=== PATIENT | male | born 1965 | race Two or more races ===

== ENCOUNTER 2017-04-30 18:13 | Emergency (ER) | payer OTHER ==
[~2017-04-30] VITALS: Ht 177.8 cm; Wt 79.4 kg
[~2017-04-30 18:13] MED LIST: ALBUPOW26; ATEN-60 PO; ESOM40CA39 PO
[2017-04-30 20:06] LABS: Basophils # (auto) 0.1 uL; Basophils % (auto) 1.2 % (0.0-2.0); Eosinophils # (auto) 0.2 uL; Eosinophils % (auto) 2.4 % (0.0-7.0); Hematocrit 45.5 % (41.0-53.0); Hemoglobin 15.9 g/dL (13.5-17.5); Lymphocytes % (auto) 34.4 % (10.0-50.0); Mean Corpuscular Hemoglobin 31.9 pg (28.0-32.0); Mean Corpuscular Volume 91.2 fL (80.0-100.0); Monocytes # (auto) 0.8 uL; Monocytes % (auto) 8.9 % (0.0-12.0); Neutrophils # (auto) 4.6 uL; Neutrophils % (auto) 53.1 % (37.0-80.0); Nucleated Red Blood Cells % 0.1 %; Platelet Count (auto) 214 10^3/uL (140-450); Red Blood Cells 4.99 10^6/uL (4.5-5.90); Red Cell Distribution Width 12.8 % (11.8-14.3); White Blood Cell 8.6 10^3/uL (4.4-10.8)
[2017-04-30 20:23] LABS: Alanine Aminotransferase 43 U/L (16-61); Albumin 4.3 g/dL (3.4-5.0); Anion Gap 8 (5-15); Aspartate Aminotransferase 30 U/L (15-37); BUN/Creatinine Ratio 12.8; Blood Urea Nitrogen 11 mg/dL (7-18); Calcium 9.3 mg/dL (8.5-10.1); Carbon Dioxide 29 mmol/L (21-32); Chloride 102 mmol/L (98-107); GFR African American 120 mL/min; GFR Non-African American 99 mL/min; Glucose 87 mg/dL (74-106); Potassium 4.3 mmol/L (3.5-5.1); Sodium 139 mmol/L (136-145)
[2017-04-30 20:27] LABS: Alkaline Phosphatase 85 U/L (45-117); Bilirubin, Total 0.3 mg/dL (0.2-1.0); Total Protein 7.9 g/dL (6.4-8.2)
[2017-04-30 21:59] VITALS: BP 151/102
[2017-04-30] MEDS ORDERED: NALBUPHINE HCL 10 MG/1ml INJECTION IV ONE (22:15)
[2017-04-30] MEDS ORDERED: SODIUM CHLORIDE 0.9% 1,000 ML IV ONE (22:15)
[2017-04-30 22:23] LABS: Basophils # (auto) 0.1 uL; Basophils % (auto) 1.3 % (0.0-2.0); Eosinophils # (auto) 0.2 uL; Eosinophils % (auto) 2.7 % (0.0-7.0); Hematocrit 42.1 % (41.0-53.0); Hemoglobin 14.7 g/dL (13.5-17.5); Lymphocytes # (auto) 2.5 uL; Lymphocytes % (auto) 35.3 % (10.0-50.0); Mean Corpuscular Hemoglobin 31.9 pg (28.0-32.0); Mean Corpuscular Volume 91.3 fL (80.0-100.0); Monocytes # (auto) 0.7 uL; Monocytes % (auto) 9.2 % (0.0-12.0); Neutrophils # (auto) 3.7 uL; Neutrophils % (auto) 51.5 % (37.0-80.0); Nucleated Red Blood Cells % 0.1 %; Platelet Count (auto) 210 10^3/uL (140-450); Red Blood Cells 4.61 10^6/uL (4.5-5.90); Red Cell Distribution Width 12.7 % (11.8-14.3); White Blood Cell 7.2 10^3/uL (4.4-10.8)
[2017-04-30] MEDS ORDERED: cloNIDine HCL 0.1 MG TAB PO ONE (23:00)
[2017-04-30] MEDS ORDERED: ONDANSETRON HCL 4 MG/2 ML VIAL IV ONE (23:00)
[2017-04-30 23:44] LABS: BUN/Creatinine Ratio 14.6; Bilirubin, Total 0.4 mg/dL (0.2-1.0); Calcium 8.4 mg/dL (8.5-10.1); Potassium 3.6 mmol/L (3.5-5.1); Total Protein 7.4 g/dL (6.4-8.2)
[2017-04-30] MEDS ORDERED: MAGNESIUM CITRATE SOLUTION 300 ML BTL PO ONE (23:45)
== END 2017-05-01 00:05 | disposition home or self-care (01) ==
LOC: ER 18:13
DX: K52.9 Noninfective gastroenteritis and colitis, unspecified (principal); K59.00 Constipation, unspecified; K21.9 Gastro-esophageal reflux disease without esophagitis; Z79.899 Other long term (current) drug therapy
CPT/HCPCS: 36415; 71046; 74176; 80053; 83690; 84484; 85025; 93005; 96361; 96374; 96375; 99285; J2300; J2405; J7030

== ENCOUNTER 2017-07-19 16:53 | Emergency (ER) | payer OTHER ==
[~2017-07-19] VITALS: Ht 175.3 cm; Wt 79.4 kg
[2017-07-19 17:54] LABS: Basophils # (auto) 0.1 uL; Eosinophils # (auto) 0.2 uL; Eosinophils % (auto) 2.1 % (0.0-7.0); Hematocrit 46.7 % (41.0-53.0); Hemoglobin 16.4 g/dL (13.5-17.5); Lymphocytes # (auto) 2.7 uL; Lymphocytes % (auto) 34.1 % (10.0-50.0); Mean Corpuscular Hemoglobin 32.2 pg (28.0-32.0); Mean Corpuscular Hgb Conc. 35.1 g/dL (32.0-36.0); Mean Corpuscular Volume 91.7 fL (80.0-100.0); Monocytes # (auto) 0.7 uL; Monocytes % (auto) 9.5 % (0.0-12.0); Neutrophils # (auto) 4.1 uL; Neutrophils % (auto) 53.3 % (37.0-80.0); Nucleated Red Blood Cells % 0.1 %; Platelet Count (auto) 242 10^3/uL (140-450); Red Blood Cells 5.09 10^6/uL (4.5-5.90); Red Cell Distribution Width 12.9 % (11.8-14.3); White Blood Cell 7.8 10^3/uL (4.4-10.8)
[2017-07-19 18:04] LABS: Albumin 4.1 g/dL (3.4-5.0); BUN/Creatinine Ratio 10.5; Calcium 8.4 mg/dL (8.5-10.1); Potassium 4.2 mmol/L (3.5-5.1)
[2017-07-19 18:08] LABS: Bilirubin, Total 0.3 mg/dL (0.2-1.0); Total Protein 7.9 g/dL (6.4-8.2)
[2017-07-19] MEDS ORDERED: KETOROLAC TROMETH 30 MG/ML 1ML VIAL IV ONE (18:45)
[2017-07-19] MEDS ORDERED: ONDANSETRON HCL 4 MG/2 ML VIAL IV ONE (18:45)
[2017-07-19] MEDS ORDERED: PANTOPRAZOLE 40 MG/10 ML VIAL IV ONE (18:45)
[2017-07-19 19:23] LABS: Amylase 44 U/L (25-115); Lipase 130 U/L (73-393)
[2017-07-19] MEDS ORDERED: IOHEXOL 300 MG/ML 100ML BOTTLE IJ ONE (19:35)
[2017-07-19 21:53] VITALS: BP 119/76
[2017-07-19 22:18] LABS: Urine Bacteria NONE SEEN /hpf (None Seen); Urine Blood Negative /uL (Negative); Urine WBC <1 /hpf (0 - 3)
[2017-07-19 22:24] LABS: Urine Specific Gravity > 1.050 (1.001-1.035)
[2017-07-19] MEDS ORDERED: ACETAMINOPHEN 500 MG TAB PO PRN (22:45)
[2017-07-19] MEDS ORDERED: MORPHINE SULFATE 8mg/ml INJ SDV IV PRN (22:45)
[2017-07-19] MEDS ORDERED: LACTULOSE 20Gm/30ML SOLN PO PRN (22:45)
[2017-07-19] MEDS ORDERED: ONDANSETRON HCL 4 MG/2 ML VIAL IV PRN (22:45)
[2017-07-19] MEDS ORDERED: HYDROcodone-ACET 5/325MG TAB PO PRN (22:45)
[2017-07-20] MEDS ORDERED: PANTOPRAZOLE 40 MG/10 ML VIAL IV SCH (10:00)
== END 2017-07-19 22:57 | disposition home or self-care (01) ==
LOC: ER 16:57
DX: K21.9 Gastro-esophageal reflux disease without esophagitis (principal); K27.9 Peptic ulcer, site unspecified, unspecified as acute or chronic, without hemorrhage or perforation; K29.70 Gastritis, unspecified, without bleeding
CPT/HCPCS: 36415; 74177; 80053; 81001; 82150; 83690; 85025; 93005; 96374; 96375; 99285; C9113; J1885; J2405; Q9967

== ENCOUNTER 2018-07-07 17:01 | Emergency (ER) | payer SELFPAY ==
[~2018-07-07] VITALS: Ht 177.8 cm; Wt 78.9 kg
[~2018-07-07 17:01] MED LIST changes: -ATEN-60 PO
[2018-07-07 18:53] VITALS: BP 148/93
[2018-07-07] MEDS ORDERED: ALBUTEROL SULF 2.5 MG/0.5ML(0.5%) NEB SOLN NEB ONE (19:15)
[2018-07-07] MEDS ORDERED: IPRATROPIUM BROM 0.5 MG/2.5ML INH SOL NEB ONE (19:15)
== END 2018-07-07 20:14 | disposition home or self-care (01) ==
LOC: ER 17:06
DX: R91.8 Other nonspecific abnormal finding of lung field (principal); J98.11 Atelectasis; I10 Essential (primary) hypertension; K21.9 Gastro-esophageal reflux disease without esophagitis
CPT/HCPCS: 71046; 93005; 94640; 99283; J7611; J7644

== ENCOUNTER 2019-10-25 17:49 | Emergency (ER) | payer OTHER ==
[~2019-10-25] VITALS: Ht 172.7 cm; Wt 75.7 kg
[2019-10-25 18:51] LABS: Basophils # (auto) 0.1 10 ^3/uL (0-0.2); Basophils % (auto) 0.7 % (0.0-2.0); Eosinophils # (auto) 0 10 ^3/uL (0-0.8); Eosinophils % (auto) 0.2 % (0.0-7.0); Hemoglobin 16.5 g/dL (13.5-17.5); Lymphocytes # (auto) 1.4 10 ^3/uL (0.4-5.4); Lymphocytes % (auto) 14.2 % (10.0-50.0); Mean Corpuscular Hemoglobin 31.2 pg (28.0-32.0); Mean Corpuscular Hgb Conc. 34.4 g/dL (32.0-36.0); Mean Corpuscular Volume 90.9 fL (80.0-100.0); Monocytes # (auto) 0.6 10 ^3/uL (0-1.3); Monocytes % (auto) 6.1 % (0.0-12.0); Neutrophils # (auto) 7.6 10 ^3/uL (1.6-8.6); Neutrophils % (auto) 78.8 % (37.0-80.0); Nucleated Red Blood Cells % 0.1 %; Platelet Count (auto) 266 10^3/uL (140-450); Red Blood Cells 5.28 10^6/uL (4.5-5.90); Red Cell Distribution Width 12.6 % (11.8-14.3); White Blood Cell 9.6 10^3/uL (4.4-10.8)
[2019-10-25 19:06] LABS: INR 0.99 (0.9-1.15); Partial Thromboplastin Time 24.7 sec (23.0-31.2)
[2019-10-25 19:08] LABS: Alanine Aminotransferase 20 U/L (16-61); Albumin 4.3 g/dL (3.4-5.0); Anion Gap 7 (5-15); Aspartate Aminotransferase 18 U/L (15-37); BUN/Creatinine Ratio 10.4; Blood Urea Nitrogen 10 mg/dL (7-18); Calcium 8.9 mg/dL (8.5-10.1); Carbon Dioxide 26 mmol/L (21-32); Chloride 105 mmol/L (98-107); GFR African American 105 mL/min; GFR Non-African American 86 mL/min; Glucose 116 mg/dL (74-106); Sodium 138 mmol/L (136-145)
[2019-10-25 19:13] LABS: Alkaline Phosphatase 78 U/L (45-117); Bilirubin, Total 0.4 mg/dL (0.2-1.0); Total Protein 8.4 g/dL (6.4-8.2)
[2019-10-26] MEDS ORDERED: HYDROcodone-ACET 10/325MG TAB PO ONE (00:15)
[2019-10-26 04:17] VITALS: BP 118/67
== END 2019-10-26 04:37 | disposition home or self-care (01) ==
LOC: ER 17:49
DX: R07.89 Other chest pain (principal); R00.0 Tachycardia, unspecified; F41.9 Anxiety disorder, unspecified; R51 Headache; B69.9 Cysticercosis, unspecified; K21.9 Gastro-esophageal reflux disease without esophagitis; I10 Essential (primary) hypertension
CPT/HCPCS: 36415; 70450; 71046; 80053; 84484; 85025; 85610; 85730; 93005

== ENCOUNTER 2019-12-04 18:02 | Emergency (ER) | payer OTHER ==
[~2019-12-04] VITALS: Ht 172.7 cm; Wt 74.8 kg
[2019-12-04] MEDS ORDERED: ASPirin 81 mg TAB PO ONE (19:00)
[2019-12-04] MEDS ORDERED: ACETAMINOPHEN 325 MG TAB PO ONE (19:00)
[2019-12-04 19:15] LABS: Urine Bacteria NONE SEEN /hpf (None Seen); Urine Blood Negative /uL (Negative); Urine Specific Gravity 1.014 (1.001-1.035); Urine WBC <1 /hpf (0 - 3)
[2019-12-04 19:29] LABS: Alcohol, Urine < 3.0 mg/dL (0-10); Amphetamine Screen, Urine NEGATIVE (NEGATIVE); Barbiturate Scree,Urine NEGATIVE (NEGATIVE); Benzodiazephine Screen, Urine NEGATIVE (NEGATIVE); Cannabinoid Screen, Urine NEGATIVE (NEGATIVE); Cocaine Screen, Urine NEGATIVE (NEGATIVE); Opiate Scree,Urine NEGATIVE (NEGATIVE); Phencyclidine Screen, Urine NEGATIVE (NEGATIVE)
[2019-12-04 19:53] LABS: Basophils # (auto) 0.1 10 ^3/uL (0-0.2); Eosinophils # (auto) 0.1 10 ^3/uL (0-0.8); Eosinophils % (auto) 1.6 % (0.0-7.0); Hematocrit 42.9 % (41.0-53.0); Hemoglobin 14.4 g/dL (13.5-17.5); Lymphocytes % (auto) 25.3 % (10.0-50.0); Mean Corpuscular Hemoglobin 30.6 pg (28.0-32.0); Mean Corpuscular Hgb Conc. 33.5 g/dL (32.0-36.0); Mean Corpuscular Volume 91.3 fL (80.0-100.0); Monocytes # (auto) 0.6 10 ^3/uL (0-1.3); Monocytes % (auto) 7.5 % (0.0-12.0); Neutrophils # (auto) 5.1 10 ^3/uL (1.6-8.6); Neutrophils % (auto) 64.6 % (37.0-80.0); Platelet Count (auto) 222 10^3/uL (140-450); White Blood Cell 7.9 10^3/uL (4.4-10.8)
[2019-12-04 20:05] LABS: Amylase 50 U/L (25-115); Lipase 105 U/L (73-393)
[2019-12-04 20:07] LABS: Albumin 4.2 g/dL (3.4-5.0); Anion Gap 6 (5-15); Blood Urea Nitrogen 17 mg/dL (7-18); Calcium 8.9 mg/dL (8.5-10.1); Carbon Dioxide 26 mmol/L (21-32); Chloride 105 mmol/L (98-107); Glucose 96 mg/dL (74-106); Potassium 3.9 mmol/L (3.5-5.1); Sodium 137 mmol/L (136-145)
[2019-12-04 20:13] LABS: Alanine Aminotransferase 21 U/L (16-61); Alkaline Phosphatase 79 U/L (45-117); Aspartate Aminotransferase 20 U/L (15-37); BUN/Creatinine Ratio 20.2; Bilirubin, Total 0.3 mg/dL (0.2-1.0); GFR African American 122 mL/min; GFR Non-African American 101 mL/min; Total Protein 7.7 g/dL (6.4-8.2)
[2019-12-04 20:51] VITALS: BP 144/99
== END 2019-12-04 21:07 | disposition home or self-care (01) ==
LOC: ER 18:02
DX: S16.1XXA Strain of muscle, fascia and tendon at neck level, initial encounter (principal); S39.012A Strain of muscle, fascia and tendon of lower back, initial encounter; R51 Headache; K59.00 Constipation, unspecified; R07.89 Other chest pain; I10 Essential (primary) hypertension; V43.52XA Car driver injured in collision with other type car in traffic accident, initial encounter; Y93.89 Activity, other specified; Y99.8 Other external cause status; Y92.410 Unspecified street and highway as the place of occurrence of the external cause
CPT/HCPCS: 36415; 70450; 71045; 72125; 73030; 74176; 80053; 80307; 81001; 82150; 83690; 83880; 84443; 84484; 85025

== ENCOUNTER 2020-01-02 17:34 | Emergency (ER) | payer OTHER ==
[~2020-01-02] VITALS: Ht 170.2 cm; Wt 74.8 kg
[2020-01-02 18:49] VITALS: BP 145/92
== END 2020-01-02 18:56 | disposition home or self-care (01) ==
LOC: ER 17:34
DX: I10 Essential (primary) hypertension (principal); R51.9 Headache, unspecified; Z76.0 Encounter for issue of repeat prescription

== ENCOUNTER 2020-01-06 13:56 | Emergency (ER) | payer OTHER ==
[~2020-01-06] VITALS: Ht 170.2 cm; Wt 73.5 kg
[2020-01-06] MEDS ORDERED: ASPirin 81 mg TAB PO ONE (14:15)
[2020-01-06 15:15] LABS: Basophils # (auto) 0.1 10 ^3/uL (0-0.2); Eosinophils # (auto) 0.1 10 ^3/uL (0-0.8); Eosinophils % (auto) 1.2 % (0.0-7.0); Mean Corpuscular Volume 90.9 fL (80.0-100.0); Monocytes # (auto) 0.6 10 ^3/uL (0-1.3); Nucleated Red Blood Cells % 0.1 %
[2020-01-06 15:19] LABS: Basophils % (auto) 0.9 % (0.0-2.0); Hematocrit 43.4 % (41.0-53.0); Lymphocytes # (auto) 2.1 10 ^3/uL (0.4-5.4); Lymphocytes % (auto) 30.1 % (10.0-50.0); Mean Corpuscular Hemoglobin 31.5 pg (28.0-32.0); Mean Corpuscular Hgb Conc. 34.6 g/dL (32.0-36.0); Monocytes % (auto) 8.4 % (0.0-12.0); Neutrophils # (auto) 4.2 10 ^3/uL (1.6-8.6); Neutrophils % (auto) 59.4 % (37.0-80.0); Platelet Count (auto) 225 10^3/uL (140-450); Red Blood Cells 4.78 10^6/uL (4.5-5.90); Red Cell Distribution Width 12.9 % (11.8-14.3); White Blood Cell 7.1 10^3/uL (4.4-10.8)
[2020-01-06 15:30] LABS: Alanine Aminotransferase 18 U/L (16-61); Albumin 4.3 g/dL (3.4-5.0); Anion Gap 6 (5-15); Aspartate Aminotransferase 22 U/L (15-37); BUN/Creatinine Ratio 10.9; Blood Urea Nitrogen 10 mg/dL (7-18); Calcium 8.8 mg/dL (8.5-10.1); Carbon Dioxide 26 mmol/L (21-32); Chloride 107 mmol/L (98-107); GFR African American 110 mL/min; GFR Non-African American 91 mL/min; Glucose 125 mg/dL (74-106); Potassium 3.8 mmol/L (3.5-5.1); Sodium 139 mmol/L (136-145)
[2020-01-06 15:34] LABS: Alkaline Phosphatase 77 U/L (45-117); Bilirubin, Total 0.4 mg/dL (0.2-1.0); Total Protein 7.6 g/dL (6.4-8.2)
[2020-01-06 18:00] VITALS: BP 146/94
== END 2020-01-06 18:16 | disposition home or self-care (01) ==
LOC: ER 13:56
DX: R07.89 Other chest pain (principal); J40 Bronchitis, not specified as acute or chronic; B69.0 Cysticercosis of central nervous system; F41.9 Anxiety disorder, unspecified; I10 Essential (primary) hypertension; Z79.899 Other long term (current) drug therapy
CPT/HCPCS: 36415; 70450; 71046; 80053; 84443; 84484; 85025

== ENCOUNTER 2020-05-07 10:54 | Emergency (ER) | payer OTHER ==
[~2020-05-07] VITALS: Ht 175.3 cm; Wt 73.5 kg
[2020-05-07 11:39] LABS: Basophils # (auto) 0 10 ^3/uL (0-0.2); Basophils % (auto) 0.6 % (0.0-2.0); Eosinophils # (auto) 0 10 ^3/uL (0-0.8); Eosinophils % (auto) 0.7 % (0.0-7.0); Hematocrit 46.4 % (41.0-53.0); Hemoglobin 16.2 g/dL (13.5-17.5); Lymphocytes # (auto) 1.7 10 ^3/uL (0.4-5.4); Lymphocytes % (auto) 26.6 % (10.0-50.0); Mean Corpuscular Volume 91.6 fL (80.0-100.0); Monocytes # (auto) 0.4 10 ^3/uL (0-1.3); Monocytes % (auto) 5.9 % (0.0-12.0); Neutrophils # (auto) 4.3 10 ^3/uL (1.6-8.6); Neutrophils % (auto) 66.2 % (37.0-80.0); Nucleated Red Blood Cells % 0.1 %; Red Blood Cells 5.06 10^6/uL (4.5-5.90); Red Cell Distribution Width 12.8 % (11.8-14.3); White Blood Cell 6.5 10^3/uL (4.4-10.8)
[2020-05-07 12:05] LABS: Albumin 4.3 g/dL (3.4-5.0); Anion Gap 4 (5-15); Blood Urea Nitrogen 9 mg/dL (7-18); Calcium 9.1 mg/dL (8.5-10.1); Carbon Dioxide 30 mmol/L (21-32); Chloride 103 mmol/L (98-107); Glucose 128 mg/dL (74-106); Potassium 4.3 mmol/L (3.5-5.1); Sodium 137 mmol/L (136-145)
[2020-05-07 12:10] LABS: Alanine Aminotransferase 19 U/L (16-61); Alkaline Phosphatase 76 U/L (45-117); Aspartate Aminotransferase 19 U/L (15-37); Bilirubin, Total 0.3 mg/dL (0.2-1.0); GFR African American 100 mL/min; GFR Non-African American 82 mL/min; Total Protein 8.2 g/dL (6.4-8.2)
[2020-05-07 15:21] VITALS: BP 148/102
== END 2020-05-07 15:32 | disposition home or self-care (01) ==
LOC: ER 10:54
DX: R07.89 Other chest pain (principal); F41.9 Anxiety disorder, unspecified; I10 Essential (primary) hypertension
CPT/HCPCS: 36415; 71046; 80053; 84484; 85025; 93005

== ENCOUNTER 2022-05-15 11:15 | Emergency (ER) | payer MEDICAID, OTHER ==
[~2022-05-15] VITALS: Ht 175.3 cm; Wt 74.0 kg
[2022-05-15] MEDS ORDERED: ASPirin 81 mg TAB PO ONE (11:30)
[2022-05-15 11:44] LABS: Basophils # (auto) 0 10 ^3/uL (0-0.2); Basophils % (auto) 0.7 % (0.0-2.0); Eosinophils # (auto) 0.2 10 ^3/uL (0-0.8); Eosinophils % (auto) 3.5 % (0.0-7.0); Hematocrit 43.9 % (41.0-53.0); Hemoglobin 15.6 g/dL (13.5-17.5); Lymphocytes # (auto) 1.9 10 ^3/uL (0.4-5.4); Lymphocytes % (auto) 28.4 % (10.0-50.0); Mean Corpuscular Hemoglobin 32.1 pg (28.0-32.0); Mean Corpuscular Hgb Conc. 35.5 g/dL (32.0-36.0); Mean Corpuscular Volume 90.6 fL (80.0-100.0); Monocytes # (auto) 0.5 10 ^3/uL (0-1.3); Monocytes % (auto) 7.5 % (0.0-12.0); Neutrophils # (auto) 4.1 10 ^3/uL (1.6-8.6); Neutrophils % (auto) 59.9 % (37.0-80.0); Nucleated Red Blood Cells % 0.1 %; Red Blood Cells 4.84 10^6/uL (4.5-5.90); Red Cell Distribution Width 12.6 % (11.8-14.3); White Blood Cell 6.8 10^3/uL (4.4-10.8)
[2022-05-15 11:58] LABS: Potassium 4.1 mmol/L (3.5-5.1)
[2022-05-15 12:04] LABS: Albumin 4.2 g/dL (3.4-5.0); BUN/Creatinine Ratio 8.6; Bilirubin, Total 0.3 mg/dL (0.2-1.0); Calcium 8.9 mg/dL (8.5-10.1); Magnesium 2.6 mg/dL (1.6-2.6); Total Protein 7.4 g/dL (6.4-8.2)
[2022-05-15 13:46] VITALS: BP 139/84
== END 2022-05-15 13:50 | disposition home or self-care (01) ==
LOC: ER 11:15
DX: R07.89 Other chest pain (principal); E78.5 Hyperlipidemia, unspecified; R51.9 Headache, unspecified; J45.909 Unspecified asthma, uncomplicated; I10 Essential (primary) hypertension
CPT/HCPCS: 36415; 70450; 71046; 80053; 83735; 83880; 84484; 85025; 85379; 93005

== ENCOUNTER 2023-05-14 10:48 | Emergency (ER) | payer MEDICAID ==
[~2023-05-14] VITALS: Ht 175.3 cm; Wt 76.2 kg
[2023-05-14 13:44] VITALS: BP 145/88; PULSE 118; RESP 16; TEMP 97.3; O2SAT 98
[2023-05-14] MEDS ORDERED: ERY05OO OP (13:52)
== END 2023-05-14 14:13 | disposition home or self-care (01) ==
LOC: ER 10:48
DX: H57.8A3 Foreign body sensation, bilateral eyes (principal); I10 Essential (primary) hypertension; E78.5 Hyperlipidemia, unspecified; J45.909 Unspecified asthma, uncomplicated; Z79.899 Other long term (current) drug therapy

== ENCOUNTER 2023-06-19 06:16 | Emergency (ER) | payer MEDICAID ==
[~2023-06-19] VITALS: Ht 175.3 cm; Wt 73.0 kg
[~2023-06-19 06:16] MED LIST changes: +ERY05OO OP
[2023-06-19 07:43] LABS: Basophils # (auto) 0.1 10 ^3/uL (0-0.2); Basophils % (auto) 0.8 % (0.0-2.0); Eosinophils # (auto) 0.1 10 ^3/uL (0-0.8); Eosinophils % (auto) 0.9 % (0.0-7.0); Hematocrit 46.3 % (41.0-53.0); Hemoglobin 15.8 g/dL (13.5-17.5); Lymphocytes # (auto) 1.6 10 ^3/uL (0.4-5.4); Lymphocytes % (auto) 26.6 % (10.0-50.0); Mean Corpuscular Hemoglobin 31.3 pg (28.0-32.0); Mean Corpuscular Hgb Conc. 34.1 g/dL (32.0-36.0); Mean Corpuscular Volume 91.8 fL (80.0-100.0); Monocytes # (auto) 0.5 10 ^3/uL (0-1.3); Monocytes % (auto) 7.8 % (0.0-12.0); Neutrophils # (auto) 3.9 10 ^3/uL (1.6-8.6); Neutrophils % (auto) 63.9 % (37.0-80.0); Nucleated Red Blood Cells % 0.2 %; Red Blood Cells 5.05 10^6/uL (4.5-5.90); Red Cell Distribution Width 13.7 % (11.8-14.3); White Blood Cell 6.1 10^3/uL (4.4-10.8)
[2023-06-19 08:04] LABS: Alanine Aminotransferase 13 U/L (7-40); Albumin 4.8 g/dL (3.2-4.8); Alkaline Phosphatase 89 U/L (46-116); Anion Gap 7 (5-15); Aspartate Aminotransferase 21 U/L (13-40); BUN/Creatinine Ratio 12.8 (10.0-20.0); Bilirubin, Total 0.5 mg/dL (0.2-1.0); Blood Urea Nitrogen 12 mg/dL (9-23); Calcium 9.4 mg/dL (8.5-10.1); Carbon Dioxide 28 mmol/L (20-30); Chloride 105 mmol/L (98-107); Glucose 109 mg/dL (74-106); Sodium 140 mmol/L (136-145); Total Protein 7.2 g/dL (5.7-8.2)
[2023-06-19] MEDS: predniSONE 20 MG TAB PO ONE (08:48)
[2023-06-19] MEDS: ALBUTEROL SULF 2.5 MG/0.5ML(0.5%) NEB SOLN HHN ONE (09:13)
[2023-06-19] MEDS: IPRATROPIUM BROM 0.5 MG/2.5ML INH SOL HHN ONE (09:14)
[2023-06-19 09:54] LABS: COVID19 ANTIGEN SOFIA FIA NEGATIVE (NEGATIVE)
[2023-06-19 09:55] LABS: Rapid Influenza A Negative (Negative); Rapid Influenza B Negative (Negative)
[2023-06-19] MEDS ORDERED: PRED20TA2 PO (10:10)
[2023-06-19] MEDS ORDERED: ALBU108A5 IN (10:10)
[2023-06-19 10:17] VITALS: BP 142/84; PULSE 99; RESP 19; TEMP 97.7; O2SAT 97
== END 2023-06-19 10:18 | disposition home or self-care (01) ==
LOC: ER 06:16
DX: R07.89 Other chest pain (principal); J40 Bronchitis, not specified as acute or chronic; I10 Essential (primary) hypertension; E78.5 Hyperlipidemia, unspecified; Z20.822 Contact with and (suspected) exposure to COVID-19
CPT/HCPCS: 36415; 71045; 80053; 83605; 83880; 84484; 85025; 87040; 87426; 87804; 93005; 94640; 99285; J7050; J7512; J7644

== ENCOUNTER 2023-09-17 16:36 | Emergency (ER) | payer MEDICAID ==
[~2023-09-17] VITALS: Ht 175.3 cm; Wt 78.0 kg
[~2023-09-17 16:36] MED LIST changes: +ALBU108A5 IN; +ASPI-325 PO; +ATOR20TA50 PO; +BACL10TA PO; +GABA-1250 PO; +NIFE1TAB31 PO; +PRED20TA2 PO
[2023-09-17 16:41] VITALS: BP 128/83; RESP 18; O2SAT 97
[2023-09-17 17:11] LABS: Basophils # (auto) 0.1 10 ^3/uL (0-0.2); Basophils % (auto) 0.7 % (0.0-2.0); Eosinophils # (auto) 0.1 10 ^3/uL (0-0.8); Hematocrit 48.4 % (41.0-53.0); Hemoglobin 16.7 g/dL (13.5-17.5); Lymphocytes # (auto) 3.3 10 ^3/uL (0.4-5.4); Lymphocytes % (auto) 32.3 % (10.0-50.0); Mean Corpuscular Hemoglobin 31.3 pg (28.0-32.0); Mean Corpuscular Hgb Conc. 34.6 g/dL (32.0-36.0); Mean Corpuscular Volume 90.5 fL (80.0-100.0); Monocytes # (auto) 0.8 10 ^3/uL (0-1.3); Monocytes % (auto) 7.6 % (0.0-12.0); Neutrophils # (auto) 5.9 10 ^3/uL (1.6-8.6); Neutrophils % (auto) 58.4 % (37.0-80.0); Nucleated Red Blood Cells % 0.1 %; Red Blood Cells 5.35 10^6/uL (4.5-5.90); Red Cell Distribution Width 12.6 % (11.8-14.3); White Blood Cell 10.1 10^3/uL (4.4-10.8)
[2023-09-17 17:20] LABS: Urine Bacteria None Seen /hpf (None Seen)
[2023-09-17 17:51] LABS: Urine Blood Negative /uL (Negative); Urine Budding Yeast OCCASIONAL /hpf (None Seen); Urine Clarity Clear (Clear); Urine Color Light-Yellow (Yellow); Urine Protein, UAD Negative (Negative); Urine Specific Gravity 1.009 (1.001-1.035); Urine Urobilinogen Normal (Negative); Urine WBC <1 /hpf (0 - 3); Urine pH 6.5 (5.0-9.0)
[2023-09-17] MEDS: ASPirin 81 mg TAB PO ONE (18:39)
[2023-09-17 18:42] VITALS: PULSE 114
== END 2023-09-18 00:35 | disposition home or self-care (01) ==
LOC: ER 16:36
DX: R07.89 Other chest pain (principal); I10 Essential (primary) hypertension; E78.5 Hyperlipidemia, unspecified; J45.909 Unspecified asthma, uncomplicated; Z98.890 Other specified postprocedural states; Z79.899 Other long term (current) drug therapy
CPT/HCPCS: 36415; 71046; 81001; 84484; 85025; 93005

== ENCOUNTER 2025-02-14 10:45 | Inpatient (IN) | payer MEDICAID ==
[~2025-02-14] VITALS: Ht 172.7 cm; Wt 81.1 kg
--- NOTE | 2025-02-14 11:04 | ECG ---
[facility] Test Date: 2025-02-14 Test Time: 11:03:06 Pat Name: JIM SANTORO Department: [facility] ED Patient ID: [id number] Room: Gender: M Director Report: gp : 1965 Requested By: SALINAS SHELTON Order Number: [id number] Reading MD: Wilman Corral Measurements Intervals [place] Rate: 109 P: 43 CA: 151 QRS: 67 QRSD: 94 T: -67 QT: 332 QTc: 448 Interpretive Statements Sinus tachycardia Borderline repolarization abnormality Baseline wander in lead(s) V2 Electronically Signed On 02-14-2025 14:14:22 PST by Wilman Corral Please click the below link to view image of tracing.
[2025-02-14 12:01] LABS: Hematocrit 49.8 % (41.0-53.0); Hemoglobin 17.1 g/dL (13.5-17.5); Mean Corpuscular Hemoglobin 30.7 pg (28.0-32.0); Mean Corpuscular Volume 89.4 fL (80.0-100.0); Nucleated Red Blood Cells % 0.0 %
[2025-02-14 12:11] LABS: Chloride 101 mmol/L (98-107); Potassium 3.8 mmol/L (3.5-5.1); Sodium 138 mmol/L (136-145)
[2025-02-14 12:12] LABS: Anion Gap 10 (5-15); Carbon Dioxide 27 mmol/L (20-31)
[2025-02-14 12:13] LABS: Calcium 10.0 mg/dL (8.7-10.4)
[2025-02-14 12:17] LABS: BUN/Creatinine Ratio 8.8 (10.0-20.0); Glucose 103 mg/dL (74-106)
[2025-02-14 12:21] LABS: Blood Urea Nitrogen 8 mg/dL (9-23)
--- NOTE | 2025-02-14 13:15 | ED.PDOC ---
History of Present Illness HPI Comments This is a 59 year-old male who presents to the ED with a chief complaint of left flank pain as of X2 days ago. Patient reports a difficulty urinating, with dark urine color noted. Patient also reports symptoms of head pain and back pain for days, with no associated relieving factors. Patient has no further complaints or modifying factors at this time and otherwise denies dysuria, hematuria, N/V, fever, or chills. Chief Complaint: Flank Pain Time Seen by MD: 12:47 Primary Care Provider: ? Reviewed Notes: Medications, Allergies Allergies: Coded Allergies: NO KNOWN ALLERGIES (Unverified , 08/25/12) Home Meds Active Scripts Nifedipine (Nifedipine Er) 30 Mg Tab, 30 MG PO DAILY for 30 Days, #30 TAB 6 Refills Prov:VIVIENNE GREEN DO 07/01/23 Atorvastatin Calcium (ATORVASTATIN CALCIUM) 20 Mg Tab, 20 MG PO HS for 30 Days, #30 TAB 6 Refills Prov:VIVIENNE GREEN DO 07/01/23 Aspirin (Aspirin Low Dose) 81 Mg Tab, 81 MG PO DAILY for 30 Days, #30 TAB 6 Refills Prov:VIVIENNE GREEN DO 07/01/23 Prednisone (Prednisone) 20 Mg Tab, 60 MG PO DAILY, #15 TAB Prov:ODESSA MEJIA MD 06/19/23 Albuterol Sulfate (Albuterol Sulfate Hfa) 108 Mcg/Act Aer, 108 MCG IN QID PRN, #1 AER Prov:ODESSA MEJIA MD 06/19/23 Erythromycin (Erythromycin) 5 Mg/Gm Oin, 1 APPLIC OP TID for 10 Days, #5 GRAMS 0 Refills Prov:ADELINE SAEED [employer] 05/14/23 Reported Medications Nifedipine (Nifedipine Er) 30 Mg Tab, 1 TAB PO DAILY 06/29/23 Baclofen (Baclofen) 10 Mg Tab, 1 TAB PO DAILY 06/29/23 Gabapentin (Gabapentin) 300 Mg Cap, 1 CAP PO TID 06/29/23 Albuterol (Albuterol) Pow 08/25/12 Esomeprazole Magnesium Trihydr (Nexium) 40 Mg Cap, PO DAILY 08/25/12 Information Source: Patient Mode of Arrival: Ambulatory Severity: Moderate Timing: Days Duration: Since onset Past Medical History PAST MEDICAL HISTORY: Asthma, High Lipids, HTN Surgical History: Denies all surgeries Family History Family History: Family hx of Cancer, Family hx of heart erinn Social History Smoker: Non-Smoker Alcohol: Denies ETOH Use Drugs: Denies Drug Use Lives In: Home Constitutional: denies: chills, diaphoresis, fatigue, fever, malaise, sweats, weakness, others EENTM: denies: blurred vision, double vision, ear bleeding, ear discharge, ear drainage, ear pain, ear ringing, eye pain, eye redness, hearing loss, mouth pain, mouth swelling, nasal discharge, nose bleeding, nose congestion, nose pain, photophobia, tearing, throat pain, throat swelling, voice changes, others Respiratory: denies: cough, hemoptysis, orthopnea, SOB at rest, shortness of breath, SOB with excertion, stridor, wheezing, others Cardiovascular: denies: chest pain, dizzy spells, diaphoresis, Dyspnea on exertion, edema, irregular heart beat, left arm pain, lightheadedness, palpitations, PND, syncope, others Gastrointestinal: denies: abdomen distended, abdominal pain, blood streaked bowels, constipated, diarrhea, dysphagia, difficulty swallowing, hematemesis, melena, nausea, poor appetite, poor fluid intake, rectal bleeding, rectal pain, vomiting, others Genitourinary: reports: flank pain; denies: burning, dysuria, frequency, hematuria, incontinence, penile discharge, penile sore, pain, testicle pain, testicle swelling, urgency, others Neurological: reports: headache; denies: dizziness, fainting, left sided numbness, left sided weakness, numbness, paresthesia, pre-existing deficit, right sided numbness, right sided weakness, seizure, speech problems, tingling, tremors, weakness, others Musculoskeletal: reports: back pain; denies: gout, joint pain, joint swelling, muscle pain, muscle stiffness, neck pain, others Integumetry: denies: bruises, change in color, change in hair/nails, dryness, laceration, lesions, lumps, rash, wounds, others Allergic/Immunocompromised: denies: Difficulty Healing, Frequent Infections, Hives, Itching, others Hematologic/Lymphatic: denies: anemia, blood clots, easy bleeding, easy bruising, swollen glands, others Endocrine: denies: excessive hunger, excessive sweating, excessive thirst, excessive urination, flushing, intolerance to cold, intolerance to heat, unexplained weight gain, unexplained weight loss, others Psychiatric: denies: anxiety, bipolar disorder, depression, hopeless, panic disorder, schizophrenia, sleepless, suicidal, others All Other Systems: Reviewed and Negative Physical Exam General Appearance: Mild Distress, Normal HEENT: Normal ENT Inspection, TMs Normal Neck: Non-Tender, Normal Respiratory: Chest Non-Tender, Lungs Clear, No Respiratory Distress, Normal Breath Sounds Cardiovascular: No Edema, No JVD, No Murmur, No Gallop, Regular Rate/Rhythm Breast Exam: Deferred Gastrointestinal: Non Tender, Normal Bowel Sounds, Soft Genitalia: Deferred Pelvic: Deferred Rectal: Deferred Extremities: Normal capillary refill, Normal inspection, Normal range of motion, Non-tender, No pedal edema Musculoskeletal : Apperance: Normal Neurologic: Alert, No Motor Deficits, Normal Affect, Normal Mood, No Sensory Deficits Cerebellar Function: NOT DONE Reflexes: NOT DONE Skin: Dry, Normal Color, Warm Lymphatic: No Adenopathy Was a procedure done? Was a procedure done?: No EKG EKG : Pulse Rate (adult): 108 [place]: Normal Cardiac Rhythm: ST Comments Sinus tachycardia Borderline repolarization abnormality Differential Dx Considerations may include: UTI, X-Ray, Labs, Meds, VS Vital Signs Date Time Temp Pulse Resp B/P (MAP) Pulse Ox O2 Delivery O2 Flow Rate FiO2 02/14/25 17:35 98.1 116 18 132/101 (111) 96 98.1 02/14/25 15:23 116 19 97 Room Air 02/14/25 15:23 98.1 116 19 140/106 (117) 97 98.1 02/14/25 13:43 97.8 108 16 152/102 (119) 95 97.8 02/14/25 13:15 108 02/14/25 10:52 97.6 102 18 141/99 97 97.6 Lab Test 02/14/25 13:00 02/14/25 11:41 Range/Units Urine Color Light-yellow Yellow Urine Clarity Clear Clear Urine pH 6.5 5.0-9.0 Urine Specific [place] 1.017 1.001-1.035 Urine Protein Trace H Negative Urine Ketones 1+ H Negative Urine Blood Negative Negative /uL Urine Nitrite Negative Negative Urine Bilirubin Negative Negative Urine Urobilinogen Normal Negative mg/dL Urine Leukocyte Esterase Negative Negative /uL Urine RBC 1 0 - 3 /hpf Urine Microscopic WBC 1 0-3 /HPF Urine Squamous Epithelial Cells Few <5 /hpf Urine Bacteria None seen None Seen /hpf Urine Mucus Few None Seen Urine Glucose Normal Normal mg/dL White Blood Count 8.0 4.4-10.8 10^3/uL Red Blood Count 5.57 4.5-5.90 10^6/uL Hemoglobin 17.1 13.5-17.5 g/dL Hematocrit 49.8 41.0-53.0 % Mean Corpuscular Volume 89.4 80.0-100.0 fL Mean Corpuscular Hemoglobin 30.7 28.0-32.0 pg Mean Corpuscular Hemoglobin Concent 34.3 32.0-36.0 g/dL Red Cell Distribution Width 13.1 11.8-14.3 % Platelet Count 266 140-450 10^3/uL Mean Platelet Volume 9.1 6.9-10.8 fL Neutrophils (%) (Auto) 73.8 37.0-80.0 % Lymphocytes (%) (Auto) 20.4 10.0-50.0 % Monocytes (%) (Auto) 4.8 0.0-12.0 % Eosinophils (%) (Auto) 0.4 0.0-7.0 % Basophils (%) (Auto) 0.6 0.0-2.0 % Neutrophils # (Auto) 5.9 1.6-8.6 10 ^3/uL Lymphocytes # (Auto) 1.6 0.4-5.4 10 ^3/uL Monocytes # (Auto) 0.4 0-1.3 10 ^3/uL Eosinophils # (Auto) 0 0-0.8 10 ^3/uL Basophils # (Auto) 0.1 0-0.2 10 ^3/uL Nucleated Red Blood Cells 0.0 % Sodium Level 138 136-145 mmol/L Potassium Level 3.8 3.5-5.1 mmol/L Chloride Level 101 98-107 mmol/L Carbon Dioxide Level 27 20-31 mmol/L Anion Gap 10 5-15 Blood Urea Nitrogen 8 L 9-23 mg/dL Creatinine 0.91 0.700-1.30 mg/dL Glomerular Filtration Rate Calc 96 >90 mL/min BUN/Creatinine Ratio 8.8 L 10.0-20.0 Serum Glucose 103 74-106 mg/dL Lactic Acid Level 1.9 0.4-2.0 mmol/L Calcium Level 10.0 8.7-10.4 mg/dL Time of 1ST Reevaluation: 13:48 Reevaluation 1ST: Unchanged Patient Education/Counseling: Diagnosis, Treatment Family Education/Counseling: No Family Present SEPSIS Sepsis Screen Date sepsis recognized/suspect: Feb 14, 2025 Time Sepsis recognized/suspect: 1052 Recent Procedure: No On Antibiotic Therapy: No Respiratory Rate >20: No Heart Rate >90: Yes Temp<36 C (96.8 F) or >38.3 C: No SBP <90 or MAP <65 mmHG: No New Acute Mental Status Change: No Is the patient on CPAP, BIPAP,: No Physician Orders Electrocardigram (02/14/25 10:57) Blood Culture (02/14/25 11:15) Ct Ab Pel With Iv Con Only (02/14/25 15:10) Vital Signs Date Time Temp Pulse Resp B/P (MAP) Pulse Ox O2 Delivery O2 Flow Rate FiO2 02/14/25 17:35 98.1 116 18 132/101 (111) 96 98.1 02/14/25 15:23 116 19 97 Room Air 02/14/25 15:23 98.1 116 19 140/106 (117) 97 98.1 02/14/25 13:43 97.8 108 16 152/102 (119) 95 97.8 02/14/25 13:15 108 02/14/25 10:52 97.6 102 18 141/99 97 97.6 Laboratory Tests Test 02/14/25 11:41 Lactic Acid Level 1.9 mmol/L (0.4-2.0) White Blood Count 8.0 10^3/uL (4.4-10.8) Departure 1 Departure Time of Disposition: 19:35 (Patient presented with abdominal pain that was concerning for possible appendicits, gastritis, cholecystitis, colitis, gastroenteritis, sbo, or orther possible surgical emergency. Data: 1. I ordered and reviewed the result of at least 3 labs including a CBC, BMP, and Urinalysis. 2. I independently interpreted the following tests: CT Abdomen and Pelvis is concerning for benign abdomen .Risk:This patient has a high risk of morbidity due to further diagnostic testing or treatment and may suffer from an acute abdominal process disorder. Workup reveals intractable abdominal pain and patient should be admitted for further workup. and possible expert consultation. ) Impression: Primary Impression: Intractable abdominal pain Disposition: ADMITTED INPATIENT Admit to: Med Surg Condition: Guarded Critical Care Note Critical Care Time?: Yes Critical care comment: Intractable abdominal pain Authorized and Performed by: Salinas Lynch MD Total critical care time: Approximately 36 minutes Due to a high probability of clinically significant, life threatening deterioration, the patient required my highest level of preparedness to intervene emergently and I personally spent this critical care time directly and personally managing the patient. This critical care time included obtaining a history; examining the patient; pulse oximetry; ordering and review of studies; arranging urgent treatment with development of a management plan; evaluation of patient's response to treatment; frequent reassessment; and, discussions with other providers. This critical care time was performed to assess and manage the high probability of imminent, life-threatening deterioration that could result in multi-organ failure. It was exclusive of separately billable procedures and treating other patients and teaching time. Please see my other sections and the rest of the note for further information on patient assessment and treatment. Stability Stability form required: No Heart Score Heart Score: Heart Score Response (Comments) Value History Moderate Suspicious 1 EKG Normal 0 Age 45-64 1 Risk Factors N/A 0 Troponin N/A 0 Total 2 I personally scribed for SALINAS LYNCH MD ([email or web address]) on 02/14/25 at 13:15. Electronically submitted by Catherine Jamison ([email or web address]). I personally scribed for SALINAS LYNCH MD ([email or web address]) on 02/14/25 at 13:19. Electronically submitted by Catherine Jamison ([email or web address]). SALINAS LYNCH MD Feb 14, 2025 13:15
[2025-02-14 13:39] LABS: Urine Protein, UAD TRACE (Negative)
--- NOTE | 2025-02-14 16:29 | DVH ---
EXAM: CT CT AB PEL WITH IV CON ONLY HISTORY: abdominal pain TECHNIQUE: Volumetric multidetector CT images of the abdomen and pelvis were obtained after the administration of intravenous contrast. All CT scans at this facility use dose modulation, iterative reconstruction, and/or weight based dosing when appropriate to reduce radiation dose to as low as reasonably achievable. COMPARISON: CT ABD PELVIS WO CONTRAST on DOS: 12/04/19 FINDINGS: [LOWER CHEST]: Calcific granuloma in the left lung base. [LIVER]: Normal hepatic size without suspicious focal lesion. [GALLBLADDER AND BILIARY TREE]: No cholelithiasis. [SPLEEN]: Unremarkable. [PANCREAS]: Unremarkable. [ADRENAL GLANDS]: Unremarkable [KIDNEYS]: No hydronephrosis. No nephroureterolithiasis. Benign-appearing cysts of the left posterior superior kidney [BLADDER]: Unremarkable for the degree distention. [REPRODUCTIVE ORGANS]: Mild prostatomegaly [BOWEL/MESENTERY]: Stomach is normal. No CT evidence of bowel obstruction. mild stool burden. The appendix is poorly visualized. [ASCITES]: Absent [LYMPHADENOPATHY]: No pathologically enlarged lymph nodes by CT size criteria [VASCULATURE]: No aneurysmal dilatation. [ABDOMINAL WALL]: Unremarkable. [MUSCULOSKELETAL]: No acute fracture or aggressive focal osseous lesion. Multifocal degenerative change of the visualized spine. IMPRESSION: 1. No CT evidence of an acute abdominal/pelvic process. 2. Mild prostatomegaly. Mild stool burden.
[2025-02-14] MEDS: MORPHINE SULFATE 4 MG/ML SYR/VIAL IV ONE (20:35)
[2025-02-14] MEDS: ONDANSETRON HCL 4 MG/2 ML VIAL IV ONE (20:35)
[2025-02-14] MEDS: SODIUM CHLORIDE 0.9% 1,000 ML IV ONE (20:36)
--- NOTE | 2025-02-14 21:38 | DVHHP2 ---
History of Present Illness Reason for Visit: Intractable abdominal pain History of Present Illness The patient is a 59-year-old male with past medical history of asthma, hypertension, and hyperlipidemia who presented to [facility] ED with complaint of left flank pain for the past 2 days. Patient reports he has been experiencing abdominal pain associated with difficulty urinating, urinate dark urine color, back pain, getting worse today that prompted this visit. Patient was seen and evaluated in the ED, laboratory data shows WBC 8.0, platelets 266, sodium 138, potassium 3.8, BUN 8, creatinine 0.91, GFR 96, glucose 103, calcium 10.0, lactic acid 1.9, blood pressure 132/101, heart rate 1 one six, temperature 98.1 F, O2 saturation 97% on room air. Abdomen/pelvis CT revealing mild prostatomegaly, mild stool burden, no acute abdominopelvic process. Please see medication orders section in the computer. On my assessment, patient denied chest pain, no headache, dizziness, diaphoresis, shortness of breaths, no abdominal pain at this moment, diarrhea, nausea, vomiting, fever, no chills. Patient was admitted for further evaluation and medical management. Past Medical History Asthma, High Lipids, HTN Past Surgical History Denies all surgeries Family History Reviewed, noncontributory to the management of this case. Past Social History The patient lives at home, denies smoking, alcohol or illicit drugs abuse. Review of Systems Constitutional: Yes: Weakness; No: Fever, Chills, Sweats, Malaise, Other Eyes: No: Pain, Vision change, Conjunctivae inflammation, Eyelid inflammation, Other, Redness ENT: No: Ear pain, Ear discharge, Nose pain, Nose discharge, Nose congestion, Mouth pain, Mouth swelling, Throat pain, Throat swelling, Other Respiratory: No: Cough, Dry, Shortness of breath, SOB with excertion, Wheezing, Hemoptysis, Pleuritic Pain, Sputum, Wheezing, Other Cardiovascular: No: Chest Pain, Palpitations, Orthopnea, Paroxysmal Noc. Dyspnea, Edema, Lt Headedness, Other Gastrointestinal: Abdominal Pain; No: Nausea, Vomiting, Diarrhea, Constipation, Melena, Hematochezia, Other Genitourinary: No Dysuria, No Frequency, No Incontinence, No Hematuria, No Retention; Other (Flank pain) Musculoskeletal: back pain; No: other, neck pain, shoulder pain, arm pain, hand pain, leg pain, foot pain Skin: No: Rash, Lesions, Jaundice, Bruising, Other Neurological: No: Weakness, Numbness, Incoordination, Change in speech, Confusion, Seizures, Other Allergies: Coded Allergies: NO KNOWN ALLERGIES (Unverified , 08/25/12) Medications Current Medications Medications Dose Ordered Sig/Tato Route Start Time Stop Time Status Last Admin Dose Admin Aspirin 81 mg DAILY PO 02/15/25 10:00 UNV Atorvastatin Calcium 20 mg HS PO 02/14/25 22:00 UNV Metoprolol Tartrate 25 mg BID PO 02/14/25 22:00 UNV Sodium Chloride 1,000 ml @ 60 mls/hr [id number] IV 02/14/25 21:45 UNV Exam Vital Signs Vital Signs Date Time Temp Pulse Resp B/P (MAP) Pulse Ox O2 Delivery O2 Flow Rate FiO2 02/14/25 20:42 Room Air* 0 21 02/14/25 17:35 98.1 116 18 132/101 (111) 96 98.1 General Appearance: Alert, Oriented X3, Cooperative, No acute distress HEENT: Atraumatic, PERRLA, EOMI, Mucous membr. moist/pink Respiratory: Normal air movement Cardiovascular: Regular rate, Normal S1, Normal S2, No murmurs Abdominal: Normal bowel sounds, Soft, No tenderness, No hepatospenomegaly, No masses Extremities: No clubbing, No cyanosis, No edema, Normal pulses, No tenderness/swelling Skin: No rashes, No significant lesion Neuro: Normal speech, Normal tone, Sensation intact, Cranial nerves 3-12 NL, Reflexes 2+, Other (Generalized weakness) Psych/Mental Status: Mental status NL, Mood NL Labs/Xrays Labs Test 02/14/25 13:00 02/14/25 11:41 Range/Units Urine Color Light-yellow Yellow Urine Clarity Clear Clear Urine pH 6.5 5.0-9.0 Urine Specific [place] 1.017 1.001-1.035 Urine Protein Trace H Negative Urine Ketones 1+ H Negative Urine Blood Negative Negative /uL Urine Nitrite Negative Negative Urine Bilirubin Negative Negative Urine Urobilinogen Normal Negative mg/dL Urine Leukocyte Esterase Negative Negative /uL Urine RBC 1 0 - 3 /hpf Urine Microscopic WBC 1 0-3 /HPF Urine Squamous Epithelial Cells Few <5 /hpf Urine Bacteria None seen None Seen /hpf Urine Mucus Few None Seen Urine Glucose Normal Normal mg/dL White Blood Count 8.0 4.4-10.8 10^3/uL Red Blood Count 5.57 4.5-5.90 10^6/uL Hemoglobin 17.1 13.5-17.5 g/dL Hematocrit 49.8 41.0-53.0 % Mean Corpuscular Volume 89.4 80.0-100.0 fL Mean Corpuscular Hemoglobin 30.7 28.0-32.0 pg Mean Corpuscular Hemoglobin Concent 34.3 32.0-36.0 g/dL Red Cell Distribution Width 13.1 11.8-14.3 % Platelet Count 266 140-450 10^3/uL Mean Platelet Volume 9.1 6.9-10.8 fL Neutrophils (%) (Auto) 73.8 37.0-80.0 % Lymphocytes (%) (Auto) 20.4 10.0-50.0 % Monocytes (%) (Auto) 4.8 0.0-12.0 % Eosinophils (%) (Auto) 0.4 0.0-7.0 % Basophils (%) (Auto) 0.6 0.0-2.0 % Neutrophils # (Auto) 5.9 1.6-8.6 10 ^3/uL Lymphocytes # (Auto) 1.6 0.4-5.4 10 ^3/uL Monocytes # (Auto) 0.4 0-1.3 10 ^3/uL Eosinophils # (Auto) 0 0-0.8 10 ^3/uL Basophils # (Auto) 0.1 0-0.2 10 ^3/uL Nucleated Red Blood Cells 0.0 % Sodium Level 138 136-145 mmol/L Potassium Level 3.8 3.5-5.1 mmol/L Chloride Level 101 98-107 mmol/L Carbon Dioxide Level 27 20-31 mmol/L Anion Gap 10 5-15 Blood Urea Nitrogen 8 L 9-23 mg/dL Creatinine 0.91 0.700-1.30 mg/dL Glomerular Filtration Rate Calc 96 >90 mL/min BUN/Creatinine Ratio 8.8 L 10.0-20.0 Serum Glucose 103 74-106 mg/dL Lactic Acid Level 1.9 0.4-2.0 mmol/L Calcium Level 10.0 8.7-10.4 mg/dL PATIENT: JIM SANTORO PACCT: [id number] UNIT: [id number] : 1965 LOC: ER ROOM / BED: / AGE / SEX: 59 / M ADM STATUS: REG ER SERVICE 1510 ORDERING PHYSICIAN: SALINAS SHELTON MD PROCEDURE(s): ABPLIV - CT AB PEL WITH IV CON ONLY REASON: abdominal pain ORDER NUMBER(s): [id number], ACCESSION NUMBER(s): [id number] EXAM: CT CT AB PEL WITH IV CON ONLY HISTORY: abdominal pain TECHNIQUE: Volumetric multidetector CT images of the abdomen and pelvis were obtained after the administration of intravenous contrast. All CT scans at this facility use dose modulation, iterative reconstruction, and/or weight based dosing when appropriate to reduce radiation dose to as low as reasonably achievable. COMPARISON: CT ABD PELVIS WO CONTRAST on DOS: 12/04/19 FINDINGS: [LOWER CHEST]: Calcific granuloma in the left lung base. [LIVER]: Normal hepatic size without suspicious focal lesion. [GALLBLADDER AND BILIARY TREE]: No cholelithiasis. [SPLEEN]: Unremarkable. [PANCREAS]: Unremarkable. [ADRENAL GLANDS]: Unremarkable [KIDNEYS]: No hydronephrosis. No nephroureterolithiasis. Benign-appearing cysts of the left posterior superior kidney [BLADDER]: Unremarkable for the degree distention. [REPRODUCTIVE ORGANS]: Mild prostatomegaly [BOWEL/MESENTERY]: Stomach is normal. No CT evidence of bowel obstruction. mild stool burden. The appendix is poorly visualized. [ASCITES]: Absent [LYMPHADENOPATHY]: No pathologically enlarged lymph nodes by CT size criteria [VASCULATURE]: No aneurysmal dilatation. [ABDOMINAL WALL]: Unremarkable. [MUSCULOSKELETAL]: No acute fracture or aggressive focal osseous lesion. Multifocal degenerative change of the visualized spine. IMPRESSION: 1. No CT evidence of an acute abdominal/pelvic process. 2. Mild prostatomegaly. Mild stool burden. SEPSIS Sepsis Screen Date sepsis recognized/suspect: Feb 14, 2025 Time Sepsis recognized/suspect: 1052 Recent Procedure: No On Antibiotic Therapy: No Respiratory Rate >20: No Heart Rate >90: Yes Temp<36 C (96.8 F) or >38.3 C: No SBP <90 or MAP <65 mmHG: No New Acute Mental Status Change: No Is the patient on CPAP, BIPAP,: No Physician Orders Ct Ab Pel With Iv Con Only (02/14/25 15:10) Aspirin Chewable Tablet (02/15/25 10:00) Atorvastatin (Lipitor) (02/14/25 22:00) Metoprolol Tartrate Tablet (Lopressor Ta (02/14/25 22:00) Admit (02/14/25:) Allergies (02/14/25:) Code Status (02/14/25:) 0.9% Ns 1000 Ml (02/14/25 21:45) Oxygen Per Hour (02/14/25:) Hydrocodone-Acet 5/325mg Tab ([place] 32 (02/14/25 21:45) Ondansetron Hcl (Zofran) (02/14/25 21:45) Docusate Sodium Capsule (Colace Capsule) (02/14/25 21:45) Complete Blood Count (02/15/25 04:00) Comprehensive Metabolic Panel (02/15/25 04:00) Cardiac Diet-2gna,Lofat,Lochol (02/15/25 Breakfast) Condition: Serious (02/14/25:) Acetaminophen Tablet (Tylenol Tablet) (02/14/25 21:45) Bedrest With Bathroom Privileg (02/14/25:) Morphine Sulfate Injection (02/14/25 21:45) Sequential Compression Device (02/14/25 ) Nitroglycerin Sublingual (Ntrostat Subli (02/14/25:45) Morphine Sulfate Injection (02/14/25 21:45) Notify Md Of Changes From Base (02/14/25:) Fire Extinguisher Charger For 24 Hours (02/14/25:) Emergency Dysrhythmia Protocol (02/14/25:) Oxygen By Nasal Cannula (02/14/25:) Vital Signs Date Time Temp Pulse Resp B/P (MAP) Pulse Ox O2 Delivery O2 Flow Rate FiO2 02/14/25 20:42 Room Air* 0 21 02/14/25 17:35 98.1 116 18 132/101 (111) 96 98.1 02/14/25 15:23 116 19 97 Room Air 02/14/25 15:23 98.1 116 19 140/106 (117) 97 98.1 02/14/25 13:43 97.8 108 16 152/102 (119) 95 97.8 Laboratory Tests Test 02/14/25 11:41 Lactic Acid Level 1.9 mmol/L (0.4-2.0) White Blood Count 8.0 10^3/uL (4.4-10.8) Medications Medications Dose Ordered Sig/Tato Route Start Time Stop Time Status Last Admin Dose Admin Sodium Chloride 1,000 ml @ 1,000 mls/hr Q1H ONCE IV 02/14/25 19:45 02/14/25 20:44 DC 02/14/25 20:36 1,000 MLS/HR Assessment/Plan Assessment/Plan Intractable abdominal pain Tachycardia Generalized weakness Plan 1. Admit to med surge unit 2. Breathing treatment 3. Pain control management 4. Management of fluids and electrolytes 5. Consultation for hospitalist 6. Diagnostic tests abdomen/pelvis CT 7. DVT prophylaxis-on aspirin 8. Repeat labs CBC, CMP in a.m. 9. Continue with current medical management 10. Treatment plan discussed with patient and RN. Patient verbalized leroy woodward. Plan discussed with: Patient, Other (RN) My Orders Orders - MITRA GOOD DNP Procedure Category Date Status Time Aspirin Chewable PHA 02/15/25 Transmitted Tablet 10:00 Atorvastatin (Lipitor) PHA 02/14/25 Transmitted 22:00 Metoprolol Tartrate PHA 02/14/25 Transmitted Tablet (Lopressor Ta 22:00 Admit ADMIT 02/14/25 Transmitted 21:33 Allergies XIMENA 02/14/25 Transmitted 21:33 Code Status CODE 02/14/25 Transmitted 21:33 0.9% Ns 1000 Ml PHA 02/14/25 Transmitted 21:45 Oxygen Per Hour RT 02/14/25 Transmitted 21:33 Hydrocodone-Acet PHA 02/14/25 Transmitted 5/325mg Tab ([place] 21:45 Ondansetron Hcl PHA 02/14/25 Transmitted (Zofran) 21:45 Docusate Sodium PHA 02/14/25 Transmitted Capsule (Colace 21:45 Complete Blood Count LAB 02/15/25 Verified 04:00 Comprehensive LAB 02/15/25 Verified Metabolic Panel 04:00 Cardiac DIET 02/15/25 Transmitted Diet-2gna,Lofat,Lochol Breakfast Condition: Serious [facility] 02/14/25 Transmitted 21:33 Acetaminophen Tablet [facility] 02/14/25 Transmitted (Tylenol Tablet) 21:45 Bedrest With Bathroom [facility] 02/14/25 Transmitted Privileg 21:33 Morphine Sulfate [facility] 02/14/25 Transmitted Injection 21:45 Sequential [facility] 02/14/25 Transmitted Compression Device Nitroglycerin [facility] 02/14/25 Transmitted Sublingual (Ntrostat 21:45 Morphine Sulfate [facility] 02/14/25 Transmitted Injection 21:45 Notify Of Changes [facility] 02/14/25 Transmitted From Base 21:33 Fire Extinguisher Charger For [facility] 02/14/25 Transmitted 24 Hours 21:33 Emergency Dysrhythmia [facility] 02/14/25 Transmitted Protocol 21:33 Oxygen By Nasal 02/14/25 Transmitted Cannula 21:33 Problem List: (1) Intractable abdominal pain (2) Tachycardia (3) Generalized weakness Date of Service: Feb 14, 2025 Billing Provider: MITRA GOOD DNP Common Visit Codes: [id number] INP/OBS CARE (HIGH) MITRA GOOD DNP Feb 14, 2025 21:38
[2025-02-14] MEDS: SODIUM CHLORIDE 0.9% 1,000 ML IV SCH (21:45)
[2025-02-14] MEDS ORDERED: NITROGLYCERIN 0.4 MG SL TAB SL PRN (21:45)
[2025-02-14] MEDS ORDERED: HYDROcodone-ACET 5/325MG TAB PO PRN (21:45)
[2025-02-14] MEDS ORDERED: MORPHINE SULFATE INJ 2 MG/ml SYRG IV PRN ×2 (21:45)
[2025-02-14] MEDS ORDERED: ONDANSETRON HCL 4 MG/2 ML VIAL IV PRN (21:45)
[2025-02-14] MEDS ORDERED: ALBUTEROL SULF 2.5 MG/0.5ML(0.5%) NEB SOLN NEB PRN (21:45)
[2025-02-14] MEDS ORDERED: ACETAMINOPHEN 325 MG TAB PO PRN (21:45)
[2025-02-14] MEDS ORDERED: DOCUSATE SOD 100 MG CAP PO PRN (21:45)
[2025-02-14] MEDS: IBUPROFEN 800 MG TAB PO ONE (23:05)
[2025-02-14] MEDS: METOPROLOL TARTRATE 25 MG TAB PO SCH (23:06)
[2025-02-14] MEDS: ATORVASTATIN 20 MG TAB PO SCH (23:06)
[2025-02-14 23:15] VITALS: BP 135/95; PULSE 109; RESP 20; TEMP 98.7; O2SAT 96
[2025-02-15] VITALS (13 sets, daily range): BP systolic 114–142; BP diastolic 56–92; PULSE 55–96; RESP 14–18; TEMP 97.6–98.6; O2SAT 94–100
[2025-02-15] MEDS ORDERED: DEXL60CA4 PO (03:37)
[2025-02-15] MEDS ORDERED: ALBUTEROL SULF 2.5 MG/0.5ML(0.5%) NEB SOLN ONE (06:52)
[2025-02-15 08:11] LABS: Hematocrit 44.6 % (41.0-53.0); Hemoglobin 15.3 g/dL (13.5-17.5); Mean Corpuscular Hemoglobin 30.7 pg (28.0-32.0); Mean Corpuscular Volume 89.1 fL (80.0-100.0); Nucleated Red Blood Cells % 0.0 %
[2025-02-15 08:32] LABS: Alanine Aminotransferase 18 U/L (7-40); Albumin 4.7 g/dL (3.2-4.8); Alkaline Phosphatase 101 U/L (46-116); Anion Gap 9 (5-15); BUN/Creatinine Ratio 18.6 (10.0-20.0); Blood Urea Nitrogen 16 mg/dL (9-23); Calcium 9.7 mg/dL (8.7-10.4); Carbon Dioxide 28 mmol/L (20-31); Chloride 103 mmol/L (98-107); Glucose 121 mg/dL (74-106); Potassium 4.7 mmol/L (3.5-5.1); Sodium 140 mmol/L (136-145); Total Protein 7.6 g/dL (5.7-8.2)
[2025-02-15 08:33] LABS: Bilirubin, Total 0.7 mg/dL (0.2-1.0)
[2025-02-15] MEDS ORDERED: METOPROLOL TARTRATE 50 MG TAB ONE (08:40)
--- NOTE | 2025-02-15 13:17 | DVHPN2 ---
Reviewed: Care Plan, H&P, Labs, Medications, Previous Orders, Radiology Changes from previous H/P or p: No Changes Eyes: No Pain, No Vision change, No Conjunctivae inflammation, No Eyelid inflammation, No Other, No Redness ENT: No Ear pain, No Ear discharge, No Nose pain, No Nose discharge, No Nose congestion, No Mouth pain, No Mouth swelling, No Throat pain, No Throat swelling, No Other Cardiovascular: No Chest Pain, No Palpitations, No Orthopnea, No Paroxysmal Noc. Dyspnea, No Edema, No Lt Headedness, No Other Respiratory: No Cough, No Dry, No Shortness of breath, No SOB with excertion, No Wheezing, No Hemoptysis, No Pleuritic Pain, No Sputum, No Other Gastrointestinal: No Nausea, No Vomiting; Abdominal Pain; No Diarrhea, No Constipation, No Melena, No Hematochezia, No Other Genitourinary: No Dysuria, No Frequency, No Incontinence, No Hematuria, No Retention; Other (Flank pain) Musculoskeletal: No other, No neck pain, No shoulder pain, No arm pain; back pain; No hand pain, No leg pain, No foot pain Skin: No Rash, No Lesions, No Jaundice, No Bruising, No Other Objective Vitals Vital Signs Date Time Temp Pulse Resp B/P (MAP) Pulse Ox O2 Delivery O2 Flow Rate FiO2 02/15/25 12:00 97.7 71 16 125/83 (97) 97 97.7 02/15/25 07:30 Room Air* 0 21 Medications Current Medications Medications Dose Ordered Sig/Tato Route Start Time Stop Time Status Last Admin Dose Admin Aspirin 81 mg DAILY PO 02/15/25 10:00 02/15/25 09:46 81 MG Atorvastatin Calcium 20 mg HS PO 02/14/25 22:00 02/14/25 23:06 20 MG Metoprolol Tartrate 25 mg BID PO 02/14/25 22:00 02/15/25 09:52 25 MG Sodium Chloride 1,000 ml @ 60 mls/hr [id number] IV 02/14/25 21:45 02/14/25 21:45 60 MLS/HR Acetaminophen/ Hydrocodone Bitart 1 tab Q4HP PRN PO 02/14/25 21:45 Ondansetron HCl 4 mg Q4HP PRN IV 02/14/25 21:45 Docusate Sodium 100 mg BIDPRN PRN PO 02/14/25 21:45 Acetaminophen 650 mg Q6HP PRN PO 02/14/25 21:45 Morphine Sulfate 2 mg Q4HPRN PRN IV 02/14/25 21:45 Nitroglycerin 0.4 mg Q5MINP PRN SL 02/14/25 21:45 Morphine Sulfate 2 mg Q30M PRN IV 02/14/25 21:45 Albuterol 2.5 mg Q4HPRN PRN NEB 02/14/25 21:45 Laboratory Results Laboratory Tests 02/15/25 07:33 Chemistry Test 02/15/25 07:33 Albumin 4.7 g/dL (3.2-4.8) Calcium Level 9.7 mg/dL (8.7-10.4) Total Protein 7.6 g/dL (5.7-8.2) LFT Test 02/15/25 07:33 Alanine Aminotransferase (ALT) 18 U/L (7-40) Alkaline Phosphatase 101 U/L (46-116) Aspartate Amino Transferase (AST) 27 U/L (13-40) Total Bilirubin 0.7 mg/dL (0.2-1.0) Urinalysis Test 02/14/25 13:00 Urine Color Light-yellow (Yellow) Urine Clarity Clear (Clear) Urine pH 6.5 (5.0-9.0) Urine Specific [place] 1.017 (1.001-1.035) Urine Protein Trace (Negative) H Urine Ketones 1+ (Negative) H Urine Blood Negative /uL (Negative) Urine Nitrite Negative (Negative) Urine Bilirubin Negative (Negative) Urine Urobilinogen Normal mg/dL (Negative) Urine Leukocyte Esterase Negative /uL (Negative) Urine RBC 1 /hpf (0 - 3) Urine Microscopic WBC 1 /HPF (0-3) Urine Squamous Epithelial Cells Few /hpf (<5) Urine Bacteria None seen /hpf (None Seen) Urine Mucus Few (None Seen) Urine Glucose Normal mg/dL (Normal) Microbiology Microbiology Date/Time Source Procedure Growth Status 02/14/25 11:50 Blood Blood Culture - Preliminary NO GROWTH AFTER 24 HOURS OF INCUBATION. Resulted Labs and/or images reviewed: Labs reviewed by me, Image(s) reviewed by me Assessment/Plan Assessment/Plan Acute left flank pain CT abdomen pelvis without contrast negative labs normal Acute generalized weakness Hypotension: Metoprolol Hypercholesterolemia: Lipitor Asthma: Albuterol med neb Time spent 48 minutes Advanced care planning time 20 minutes Patient is full code Plan discussed with: Patient Date of Service: Feb 15, 2025 Billing Provider: MONA RICHARD MD Common Visit Codes: [id number] INP/OBS CARE(HIGH) MONA RICHARD MD Feb 15, 2025 13:17
[2025-02-15] MEDS ORDERED: ONDANSETRON HCL 4 MG/2 ML VIAL IV PRN (22:15)
[2025-02-15] MEDS ORDERED: NITROGLYCERIN 0.4 MG SL TAB SL PRN (22:15)
[2025-02-15] MEDS ORDERED: HYDROcodone-ACET 5/325MG TAB PO PRN (22:15)
[2025-02-15] MEDS ORDERED: DOCUSATE SOD 100 MG CAP PO PRN (22:15)
[2025-02-15] MEDS ORDERED: MORPHINE SULFATE INJ 2 MG/ml SYRG IV PRN ×2 (22:15)
[2025-02-15] MEDS ORDERED: ALBUTEROL SULF 2.5 MG/0.5ML(0.5%) NEB SOLN NEB PRN (22:15)
[2025-02-15] MEDS: ATORVASTATIN 20 MG TAB PO SCH (22:23)
[2025-02-15] MEDS: METOPROLOL TARTRATE 25 MG TAB PO SCH (22:24)
[2025-02-15] MEDS: ACETAMINOPHEN 325 MG TAB PO PRN (22:24)
[2025-02-16 01:00] VITALS: BP 128/80; PULSE 71; RESP 18; TEMP 97.3; O2SAT 97
[2025-02-16 05:00] VITALS: BP 110/73; PULSE 68; RESP 18; TEMP 97.4; O2SAT 97
[2025-02-16 08:00] VITALS: PULSE 91; RESP 18; O2SAT 97
[2025-02-16 09:00] VITALS: BP 138/83; PULSE 91; RESP 18; TEMP 97.8; O2SAT 97
[2025-02-16 10:00] VITALS: O2SAT 97; O2SAT 98
--- NOTE | 2025-02-17 08:40 | DVHDS2 ---
Discharge Summary Date of Admission Feb 14, 2025 at 21:33 Date of Discharge: Feb 16, 2025 Admitting Diagnosis Left flank pain Wounds: None Labs/Diagnostic Data: Laboratory Results Test 02/15/25 07:33 02/14/25 13:00 02/14/25 11:41 White Blood Count 17.0 10^3/uL (4.4-10.8) Red Blood Count 5.00 10^6/uL (4.5-5.90) Hemoglobin 15.3 g/dL (13.5-17.5) Hematocrit 44.6 % (41.0-53.0) Mean Corpuscular Volume 89.1 fL (80.0-100.0) Mean Corpuscular Hemoglobin 30.7 pg (28.0-32.0) Mean Corpuscular Hemoglobin Concent 34.4 g/dL (32.0-36.0) Red Cell Distribution Width 13.2 % (11.8-14.3) Platelet Count 260 10^3/uL (140-450) Mean Platelet Volume 9.1 fL (6.9-10.8) Neutrophils (%) (Auto) 87.1 % (37.0-80.0) Lymphocytes (%) (Auto) 7.5 % (10.0-50.0) Monocytes (%) (Auto) 5.3 % (0.0-12.0) Eosinophils (%) (Auto) 0.0 % (0.0-7.0) Basophils (%) (Auto) 0.1 % (0.0-2.0) Neutrophils # (Auto) 14.8 10 ^3/uL (1.6-8.6) Lymphocytes # (Auto) 1.3 10 ^3/uL (0.4-5.4) Monocytes # (Auto) 0.9 10 ^3/uL (0-1.3) Eosinophils # (Auto) 0 10 ^3/uL (0-0.8) Basophils # (Auto) 0 10 ^3/uL (0-0.2) Nucleated Red Blood Cells 0.0 % Sodium Level 140 mmol/L (136-145) Potassium Level 4.7 mmol/L (3.5-5.1) Chloride Level 103 mmol/L (98-107) Carbon Dioxide Level 28 mmol/L (20-31) Anion Gap 9 (5-15) Blood Urea Nitrogen 16 mg/dL (9-23) Creatinine 0.86 mg/dL (0.700-1.30) Glomerular Filtration Rate Calc 99 mL/min (>90) BUN/Creatinine Ratio 18.6 (10.0-20.0) Serum Glucose 121 mg/dL (74-106) Calcium Level 9.7 mg/dL (8.7-10.4) Total Bilirubin 0.7 mg/dL (0.2-1.0) Aspartate Amino Transferase (AST) 27 U/L (13-40) Alanine Aminotransferase (ALT) 18 U/L (7-40) Alkaline Phosphatase 101 U/L (46-116) Total Protein 7.6 g/dL (5.7-8.2) Albumin 4.7 g/dL (3.2-4.8) Urine Color Light-yellow (Yellow) Urine Clarity Clear (Clear) Urine pH 6.5 (5.0-9.0) Urine Specific [place] 1.017 (1.001-1.035) Urine Protein Trace (Negative) Urine Ketones 1+ (Negative) Urine Blood Negative /uL (Negative) Urine Nitrite Negative (Negative) Urine Bilirubin Negative (Negative) Urine Urobilinogen Normal mg/dL (Negative) Urine Leukocyte Esterase Negative /uL (Negative) Urine RBC 1 /hpf (0 - 3) Urine Microscopic WBC 1 /HPF (0-3) Urine Squamous Epithelial Cells Few /hpf (<5) Urine Bacteria None seen /hpf (None Seen) Urine Mucus Few (None Seen) Urine Glucose Normal mg/dL (Normal) Lactic Acid Level 1.9 mmol/L (0.4-2.0) Other Laboratory Tests 02/15/25 07:33 Brief Hx & Hospital Course: 59-year-old male with a history of hypertension hypercholesterolemia asthma came in complaining of left flank pain CT abdomen pelvis without contrast was negative all labs were normal. While awaiting further stabilization patient decided to leave AMA and left AMA Consults/Reason for consult None Operations or Procedures CT abdomen pelvis without contrast Condition at Discharge: Fair Final Diagnosis/Problems List Acute left flank pain CT abdomen pelvis without contrast negative labs normal Acute generalized weakness Hypotension: Metoprolol Hypercholesterolemia: Lipitor Asthma: Albuterol med neb Discharge Disposition: AMA Discharge Instruct/Medications Diet comment: Not applicable Patient left AMA Activity comment: Not applicable Patient left AMA Follow Up/Referral: Not applicable Patient left AMA Medications: Not applicable Patient left AMA Scheduled Aspirin (Aspirin Low Dose), 81 MG PO DAILY Atorvastatin Calcium (Atorvastatin Calcium), 20 MG PO HS Baclofen (Baclofen), 1 TAB PO DAILY, (Reported) Erythromycin (Erythromycin), 1 APPLIC OP TID Esomeprazole Magnesium Trihydr (Nexium), PO DAILY, (Reported) Gabapentin (Gabapentin), 1 CAP PO TID, (Reported) Nifedipine (Nifedipine Er), 1 TAB PO DAILY, (Reported) Nifedipine (Nifedipine Er), 30 MG PO DAILY Prednisone (Prednisone), 60 MG PO DAILY Scheduled PRN Albuterol Sulfate (Albuterol Sulfate Hfa), 108 MCG IN QID PRN Miscellaneous Medications Albuterol (Albuterol), (Reported) Dexlansoprazole (Dexilant), 60 MG PO, (Reported) 39 (Time taken for discharge summary 39 minutes) Discharge Statement: "Patient was advised to return to the ER or call 911 if any headaches, dizziness, shortness of breath, chest pain, abdominal pain, bleeding, fevers, or worsening of medical condition. Patient was counseled about treatment plan, medications, possible side effects, patientverbalized understanding. All questions were answered to the best of my ability. This discharge took greater then 30 minutes in planning, reviewing documentation, counseling the patient, and discussing with other team members." ASSESSMENT ASSESSMENT Hospital Course Left AMA Assessment Date of Service: Feb 17, 2025 Billing Provider: MONA RICHARD MD Common Visit Codes: [id number] DISCH DAY >30min MONA RICHARD MD Feb 17, 2025 08:40
== END 2025-02-16 11:25 | disposition left against medical advice (07) | DRG 254 ==
LOC: ER 10:45 → OVERFLOW 21:33 → WEST WING 02-15 21:00
PROVIDERS: ADMIT Family Medicine; ATTEND Family Medicine
DX: K59.00 Constipation, unspecified (principal); E78.00 Pure hypercholesterolemia, unspecified; J45.909 Unspecified asthma, uncomplicated; I10 Essential (primary) hypertension; Z53.29 Procedure and treatment not carried out because of patient's decision for other reasons; I95.9 Hypotension, unspecified; Z82.49 Family history of ischemic heart disease and other diseases of the circulatory system; Z80.9 Family history of malignant neoplasm, unspecified; N40.0 Benign prostatic hyperplasia without lower urinary tract symptoms
CPT/HCPCS: 36415; 74177; 80048; 80053; 81001; 83605; 85025; 87040; 93005; 96360; 99291; G0378